=== PATIENT | male | born 1955 | race Caucasian/White ===

== ENCOUNTER 2017-11-20 13:22 | Inpatient (IN) | payer MEDICARE, MEDICAID ==
[~2017-11-20] VITALS: Ht 157.5 cm; Wt 78.3 kg
--- NOTE | 2017-11-20 07:45 | NUR ---
WARP DYEING TENDER NOTE: PATIENT IN BED, AWAKE AND VERBALLY RESPONSIVE. NOT ON ANY DISTRESS. DENIED PAIN. REPORT GIVEN TO PM SHIFT NURSE FOR CONTINUITY OF CARE. PM SHIFT NURSE WAS ALSO INFORMED THAT PATIENT RECEIVED VANCOMYCIN AT THE ER. Addendum: 11/20/17 at 2146 by GRIS OLIVARES RN ERROR IN TIME
--- NOTE | 2017-11-20 13:25 | NUR ---
PT ARI TO ER BED 09. WAS AT [facility]IALYSIS CENTER WHEN HE WAS NOTED TO BE TACHYCARDIC AND HYPOTENSIVE. PT DENIES ANY PAIN OR ANY DISCOMFORT. GOWNED AND PLACED ON MONITOR. AWAITLISBET SWANSON.
--- NOTE | 2017-11-20 13:36 | NUR ---
DR LEZAMA AT BEDSIDE FOR EVAL.
--- NOTE | 2017-11-20 13:43 | NUR ---
RADIOLOGY AT BEDSIDE FOR CHEST XRAY.
[2017-11-20] MEDS ORDERED: DILTIAZEM HCL 50 MG IV ONE (13:48)
[2017-11-20 13:55] LABS: BASOPHILS % (AUTO) 0.4 % (0.0-2.0); EOSINOPHILS # (AUTO) 0.2 /CMM (0.0-0.7); EOSINOPHILS % (AUTO) 3.2 % (0.0-6.0); HEMATOCRIT 26 % (39-51); HEMOGLOBIN 8.3 g/dL (13.5-17.5); LYMPHOCYTES # (AUTO) 1.3 /CMM (0.8-4.8); LYMPHOCYTES % (AUTO) 23.2 % (20.0-44.0); MEAN CORPUSCULAR HEMOGLOBIN 23 PG (26.0-33.0); MEAN CORPUSCULAR HGB CONC 32 g/dl (31.0-36.0); MEAN CORPUSCULAR VOLUME 72 fL (80-96); MONOCYTES # (AUTO) 0.5 /CMM (0.1-1.30); MONOCYTES % (AUTO) 9.6 % (2.0-12.0); NEUTROPHILS # (AUTO) 3.5 /CMM (1.8-8.9); NEUTROPHILS % (AUTO) 63.6 % (43.0-81.0); PLATELET COUNT (AUTO) 212 /CMM (150-450); RDW COEFFICIENT OF VARIATION 26.8 (11.5-15.0); RED BLOOD CELL COUNT(AUTO) 3.58 MIL/uL (4.5-6.0); WHITE BLOOD COUNT (AUTO) 5.5 K/uL (4.3-11.0)
[2017-11-20] MEDS ORDERED: IV NS 0.9% 500 ML BAG IV ONE (14:00)
[2017-11-20] MEDS ORDERED: DILTIAZEM HCL 50 MG IV IV ONE ×2 (14:00)
--- NOTE | 2017-11-20 14:12 | NUR ---
PT STILL TACHY AT 133. DR LEZAMA AT BEDSIDE. ORDER FOR DILTIAZEM 10MG IVP. ORDERED CARRIED OUT GIVEN SLOW IVP.
[2017-11-20 14:13] LABS: CALCIUM, SERUM 8.6 mg/dL (8.5-10.1); CARBON DIOXIDE 24 mmol/L (21-32); CHLORIDE 99 mmol/L (98-107); CREATININE 5.4 mg/dL (0.6-1.3); GLUCOSE 203 mg/dL (74-106); POTASSIUM 5.1 mmol/L (3.5-5.1); SODIUM SERUM 136 mmol/L (136-145); UREA NITROGEN, BLOOD 36 mg/dL (7-18)
[2017-11-20 14:19] LABS: TROPONIN I < 0.017 ng/mL (0.00-0.056)
[2017-11-20 14:26] LABS: ALANINE AMINOTRANSFERASE 11 U/L (12-78); ALBUMIN 3.1 g/dL (3.4-5.0); ALKALINE PHOSPHATASE 126 U/L (46-116); ASPARTATE AMINOTRANSFERASE 13 U/L (15-37); BILIRUBIN,DIRECT 0.1 mg/dL (0.0-0.2); BILIRUBIN,TOTAL 0.5 mg/dL (0.2-1.0); TOTAL PROTEIN, SERUM 7.6 g/dL (6.4-8.2)
--- NOTE | 2017-11-20 14:40 | NUR ---
DR LEZAMA ON THE PHONE WITH DR FINESSE FERREIRA
[2017-11-20] MEDS ORDERED: CROM10DR2 RIGHTEYE (15:00)
[2017-11-20] MEDS ORDERED: AMIO200T2 PO (15:00)
[2017-11-20] MEDS ORDERED: ATOR20TA PO (15:00)
[2017-11-20] MEDS ORDERED: GABA-534 PO (15:00)
[2017-11-20] MEDS ORDERED: RANI150C4 PO (15:00)
[2017-11-20] MEDS ORDERED: VANCOMYCIN 1 GM in IV D5W 250 ML IV ONE (15:00)
[2017-11-20] MEDS ORDERED: INSU100V7 SQ (15:00)
[2017-11-20] MEDS ORDERED: TERA10CA4 PO (15:00)
[2017-11-20] MEDS ORDERED: FERR325T23 PO (15:00)
[2017-11-20] MEDS ORDERED: INSU100I14 SQ (15:00)
[2017-11-20] MEDS ORDERED: SEVE800T8 PO (15:00)
[2017-11-20] MEDS ORDERED: ASPI-1169 PO (15:00)
[2017-11-20] MEDS ORDERED: CALC0.253 PO (15:00)
[2017-11-20] MEDS ORDERED: CARV12.5 PO (15:00)
[2017-11-20] MEDS ORDERED: TRAM50TA2 PO (15:00)
[2017-11-20] MEDS ORDERED: CINA30TA2 PO (15:00)
[2017-11-20] MEDS ORDERED: POLY17PO4 PO (15:00)
[2017-11-20] MEDS ORDERED: PANT40TA4 PO (15:00)
[2017-11-20] MEDS ORDERED: DOCU-141 PO (15:00)
[2017-11-20] MEDS ORDERED: AMLO10TA2 PO (15:00)
[2017-11-20 15:05] LABS: INR 4.35 (0.85-1.15)
--- NOTE | 2017-11-20 15:06 | NUR ---
PATIENT ASSIGNED TO TELE 118-1, ADMITTING DR PACHECO, MARCO Cardoza-BRITTANI
--- NOTE | 2017-11-20 15:26 | NUR ---
PT STILL UNABLE TO PROVIDE URINE SAMPLE.
--- NOTE | 2017-11-20 15:34 | NUR ---
REPORT GIVEN TO SHAYAN. PT AWAITING TRANSFER TO FLOOR.
[2017-11-20 16:00] VITALS: BP 131/71
--- NOTE | 2017-11-20 16:00 | NUR ---
SENIOR FIRE PROTECTION ENGINEER NOTE: RECEIVED PATIENT TO ROOM 118-1 AND REPORT WAS GIVEN BY DAREN ANDERSEN. PATIENT IS AWAKE, ALERT AND VERBALLY RESPONSIVE. NOT ON ANY FORM OF DISTRESS. DENIES PAIN. COMPLETE BODY ASSESSMENT DONE. SKIN INTACT NOTED W/ ABDOMINAL SCARS. HOB ELEVATED. (L) HAND 18G PATENT AND INTACT. (R) SUBCLAVIAN HD CATH NOTED. PER REPORT FROM ER NURSE, THE PATIENT MISSED TO HAVE HIS HD SCHEDULED TODAY DUE TO HIS ELEVATED HR AND LOW BP. DR. PACHECO WAS MADE AWARE OF THE PATIENT'S ADMISSION TO THE UNIT. AWAITING FOR MD ORDERS. PATIENT PLACED IN A COMFORTABLE POSITION IN THE BED. CALL LIGHT WITHIN REACH. BED ALARM AND LOCKED AT ALL TIMES.
--- NOTE | 2017-11-20 16:10 | NUR ---
FINGERPRINT EXPERT NOTE: PATIENT WAS NOTED W/ (L) CHEST ICD, (R) SUBCLAVIAN HD CATH AND OLD SCARS IN THE ABDOMEN. PATIENT VERBALIZED THAT HE DOES NOT REMEMBER IF HE RECEIVED INFLUENZA AND PNEUMONIA VACCINE.
[2017-11-20] MEDS ORDERED: TRAMADOL HCL 50 MG TABLET PO PRN (18:00)
[2017-11-20] MEDS ORDERED: ASPIRIN 81 MG TAB.CHEW PO SCH (18:00)
[2017-11-20] MEDS ORDERED: ONDANSETRON HCL/PF 4 MG/2 ML VIAL IVP PRN (18:00)
[2017-11-20] MEDS ORDERED: ACETAMINOPHEN 325 MG TABLET PO PRN (18:00)
[2017-11-20] MEDS ORDERED: MAGNESIUM HYDROXIDE 30 ML UDC PO PRN (18:00)
[2017-11-20] MEDS ORDERED: Z GUARD REMEDY 2 OZ OINT TP PRN (18:00)
[2017-11-20] MEDS ORDERED: ZOLPIDEM TARTRATE 5 MG TABLET PO PRN (18:00)
[2017-11-20] MEDS ORDERED: HYDROCODONE/APAP 5/325MG 1 EACH TABLET PO PRN (18:00)
[2017-11-20] MEDS ORDERED: MAG HYDROX/AL HYDROX/SIMETH 30 ML UDC PO PRN (18:00)
[2017-11-20] MEDS: ASPIRIN 81 MG TAB.CHEW PO SCH (18:09)
[2017-11-20] MEDS: AMLODIPINE BESYLATE 10 MG TABLET PO SCH (18:10)
[2017-11-20] MEDS: CALCITRIOL 0.25 MCG CAPSULE PO SCH (18:10)
[2017-11-20] MEDS: AMIODARONE HCL 200 MG TABLET PO SCH (18:10)
[2017-11-20] MEDS: PANTOPRAZOLE 40 MG TABLET.DR PO SCH (18:10)
[2017-11-20] MEDS: DOCUSATE SODIUM 100 MG CAPSULE PO SCH (18:11)
[2017-11-20] MEDS: CARVEDILOL 12.5 MG TABLET PO SCH (18:11)
[2017-11-20] MEDS: FERROUS SULFATE (325 MG) 325 MG/TAB TABLET PO SCH (18:11)
[2017-11-20] MEDS: GABAPENTIN 300 MG CAPSULE PO SCH (18:11)
[2017-11-20] MEDS: POLYETHYLENE GLYCOL 3350 17 GM POWD.PACK PO SCH (18:11)
[2017-11-20] MEDS: CINACALCET HCL 30 MG TABLET PO SCH (18:11)
--- NOTE | 2017-11-20 19:45 | NUR ---
CONTROL ROOM HELPER NOTE: PATIENT IN BED, AWAKE AND VERBALLY RESPONSIVE. NOT ON ANY DISTRESS. DENIED PAIN. REPORT GIVEN TO PM SHIFT NURSE FOR CONTINUITY OF CARE. PM SHIFT NURSE WAS ALSO INFORMED THAT PATIENT RECEIVED VANCOMYCIN AT THE ER.
[2017-11-20 20:00] VITALS: BP 84/49
--- NOTE | 2017-11-20 20:50 | NUR ---
ekg refused by hemodialysis nurse at thsi time gloria hernandez notified
[2017-11-20 21:37] VITALS: BP 86/49
[2017-11-20] MEDS: TERAZOSIN HCL 5 MG CAPSULE PO SCH (22:00)
[2017-11-20] MEDS: FAMOTIDINE (20 MG) 20 MG TABLET PO SCH (22:36)
--- NOTE | 2017-11-20 22:42 | NUR ---
PROPERTY CARETAKER NOTES SPOKE WITH PHARMACIST MORELIA. RELAYED PATIENT WITH LOW BP 88/49 AND JUST FINISHED DIALYSIS. MORELIA RECOMMENDED TO HOLD TERAZOSIN DOSE. DOSE WAS HELD BY RN
[2017-11-20] MEDS: INSULIN GLARGINE, 100 UNIT/ML CARTRIDGE SQ SCH (23:21)
[2017-11-21] VITALS: BP 116/65
[2017-11-21 04:00] VITALS: BP 114/71
[2017-11-21 08:00] VITALS: BP 120/63
[2017-11-21 08:04] LABS: BASOPHILS % (AUTO) 0.2 % (0.0-2.0); EOSINOPHILS # (AUTO) 0.2 /CMM (0.0-0.7); EOSINOPHILS % (AUTO) 2.5 % (0.0-6.0); HEMATOCRIT 22 % (39-51); HEMOGLOBIN 7.3 g/dL (13.5-17.5); LYMPHOCYTES # (AUTO) 0.9 /CMM (0.8-4.8); LYMPHOCYTES % (AUTO) 10.2 % (20.0-44.0); MEAN CORPUSCULAR HEMOGLOBIN 24 PG (26.0-33.0); MEAN CORPUSCULAR HGB CONC 33 g/dl (31.0-36.0); MEAN CORPUSCULAR VOLUME 72 fL (80-96); MONOCYTES # (AUTO) 0.6 /CMM (0.1-1.30); MONOCYTES % (AUTO) 7.2 % (2.0-12.0); NEUTROPHILS # (AUTO) 7.2 /CMM (1.8-8.9); NEUTROPHILS % (AUTO) 79.9 % (43.0-81.0); PLATELET COUNT (AUTO) 191 /CMM (150-450); RDW COEFFICIENT OF VARIATION 26.5 (11.5-15.0)
[2017-11-21 08:05] LABS: ALBUMIN 2.8 g/dL (3.4-5.0); BILIRUBIN,TOTAL 0.7 mg/dL (0.2-1.0); CALCIUM, SERUM 7.7 mg/dL (8.5-10.1); CREATININE 3.5 mg/dL (0.6-1.3); MAGNESIUM 1.5 mg/dL (1.8-2.4); PHOSPHORUS 2.7 mg/dL (2.5-4.9); POTASSIUM 4.7 mmol/L (3.5-5.1); TOTAL PROTEIN, SERUM 6.9 g/dL (6.4-8.2)
[2017-11-21] MEDS: FERROUS SULFATE (325 MG) 325 MG/TAB TABLET PO SCH (08:15)
[2017-11-21] MEDS: DOCUSATE SODIUM 100 MG CAPSULE PO SCH ×2 (08:16→17:00)
[2017-11-21] MEDS: GABAPENTIN 300 MG CAPSULE PO SCH (08:16)
[2017-11-21] MEDS: FAMOTIDINE (20 MG) 20 MG TABLET PO SCH ×2 (08:16→21:47)
[2017-11-21] MEDS: ASPIRIN 81 MG TAB.CHEW PO SCH (08:16)
[2017-11-21] MEDS: CALCITRIOL 0.25 MCG CAPSULE PO SCH (08:17)
[2017-11-21] MEDS: AMIODARONE HCL 200 MG TABLET PO SCH (08:17)
[2017-11-21] MEDS: CINACALCET HCL 30 MG TABLET PO SCH (08:17)
[2017-11-21] MEDS: PANTOPRAZOLE 40 MG TABLET.DR PO SCH (08:17)
[2017-11-21] MEDS: CARVEDILOL 12.5 MG TABLET PO SCH ×2 (08:18→21:00)
[2017-11-21] MEDS: POLYETHYLENE GLYCOL 3350 17 GM POWD.PACK PO SCH (08:21)
[2017-11-21] MEDS: AMLODIPINE BESYLATE 10 MG TABLET PO SCH (08:26)
[2017-11-21] MEDS ORDERED: CROMOLYN SODIUM RIGHTEYE SCH ×3 (09:00)
[2017-11-21 10:00] LABS: BAND % (MANUAL) 1 % (0.0-5.0); EOSINOPHILS % (MANUAL) 2 % (0-4); LYMPHOCYTES % (MANUAL) 15 % (16-48); MONOCYTES % (MANUAL) 5 % (0-11.0); NEUTROPHILS % (MANUAL) 77 (42-76)
[2017-11-21 10:02] LABS: ABG BASE EXCESS 0.1 mmol/L; ABG OXYGEN SATURATION 93.8 % (92.0-98.5); ABG PCO2 35.1 mmHg (35.0-45.0); ABG PH 7.452 (7.350-7.450); ABG PO2 73.4 mmHg (75.0-100.0); AaDO2 34.3 mmHg; COHb 1.1 % (0.5-1.5); MetHb 0.1 % (0.0-1.5); O2Hb 92.7 % (94.0-97.0); SITE, ABG Right Brachial; VENT MODE, BG ROOM AIR
[2017-11-21 12:00] VITALS: BP 124/59
[2017-11-21] MEDS ORDERED: EPOETIN ALFA (10,000 UNIT) 10,000 UNIT/ML VIAL IV SCH (13:00)
[2017-11-21 16:00] VITALS: BP 114/60
[2017-11-21 16:39] LABS: INR 2.61 (0.87-1.13)
[2017-11-21] MEDS: SEVELAMER CARBONATE 800 MG TABLET PO SCH (17:47)
[2017-11-21 20:00] VITALS: BP 106/56
--- NOTE | 2017-11-21 20:00 | NUR ---
SERVICE TECHNICIAN NOTE PT IN BED ASLEEP, AROUSABLE. A/O X 4 ROMANIAN SPEAKING. ON TELE SR WITH 1ST DEGREE AV BLOCK HR 80. NO DISTRESS OR DISCOMFORT NOTED. DENIES PAIN. LT HAND S/L #18G INTACT AND PATENT. RT CLAVIAN HD CATH INTACT. SIDE RAILS UP X 2 AND CALL LIGHT WITHIN REACH. VSS. CONTINUE TO MONITOR HIM.
[2017-11-21] MEDS: ATORVASTATIN 10 MG TABLET PO SCH (21:47)
[2017-11-21] MEDS: TERAZOSIN HCL 5 MG CAPSULE PO SCH (21:50)
[2017-11-21] MEDS: INSULIN GLARGINE, 100 UNIT/ML CARTRIDGE SQ SCH (22:06)
--- NOTE | 2017-11-21 22:55 | NUR ---
HEARING SCREENER NOTE PT ENDORSED TO NURSE GARSIA FOR CONTINUE TO CARE. PT IN NO DISTRESS OR DISCOMFORT.
--- NOTE | 2017-11-21 23:00 | NUR ---
ACCREDITED LEGAL SECRETARY NOTES RECEIVED PATIENT AND REPORT FROM BEVERLY MERCEDES, WILL CONTINUE PATIENT CARE.
[2017-11-22] VITALS (13 sets, daily range): BP systolic 60–141; BP diastolic 36–78
[2017-11-22 06:57] LABS: EOSINOPHILS # (AUTO) 0.1 /CMM (0.0-0.7); EOSINOPHILS % (AUTO) 1.9 % (0.0-6.0); HEMATOCRIT 24 % (39-51); HEMOGLOBIN 7.8 g/dL (13.5-17.5); LYMPHOCYTES # (AUTO) 1.6 /CMM (0.8-4.8); LYMPHOCYTES % (AUTO) 21.6 % (20.0-44.0); MEAN CORPUSCULAR HEMOGLOBIN 24 PG (26.0-33.0); MEAN CORPUSCULAR HGB CONC 33 g/dl (31.0-36.0); MEAN CORPUSCULAR VOLUME 72 fL (80-96); MONOCYTES # (AUTO) 1.1 /CMM (0.1-1.30); MONOCYTES % (AUTO) 14.4 % (2.0-12.0); NEUTROPHILS # (AUTO) 4.6 /CMM (1.8-8.9); NEUTROPHILS % (AUTO) 62.1 % (43.0-81.0); PLATELET COUNT (AUTO) 169 /CMM (150-450); RDW COEFFICIENT OF VARIATION 26.3 (11.5-15.0); RED BLOOD CELL COUNT(AUTO) 3.29 MIL/uL (4.5-6.0); WHITE BLOOD COUNT (AUTO) 7.4 K/uL (4.3-11.0)
--- NOTE | 2017-11-22 07:04 | NUR ---
corporate communications intern notes patient is tachy at 135-140 on tele monitor and automatic bp machine. Patient is also hypotensive at 87/52. temp 97.9, respirations at 18, patient is fully alert and oriented x [address] Notified Dr[address] Rodriguez by paging. spoke with Brandon from answering service and relayed information. awating for call back.
[2017-11-22 07:22] LABS: IRON, SERUM 13 ug/dl (50-175); TOTAL IRON BINDING CAPACITY 160 ug/dl (250-450)
[2017-11-22 07:56] LABS: FERRITIN 1999 ng/mL (8-388)
--- NOTE | 2017-11-22 08:00 | NUR ---
SUPERVISOR HAND WORKERS AM NOTES PT IN BED ALERT,AWAKE ATE 100%BREAKFAST.A/O X 4 KHMER SPEAKING. ON TELE SR WITH 1ST DEGREE AV BLOCK HR 80. NO DISTRESS OR DISCOMFORT NOTED. DENIES PAIN. LT HAND S/L #18G INTACT AND PATENT. RT SUBCLAVIAN HD CATH INTACT. SIDE RAILS UP X 2 AND CALL LIGHT WITHIN REACH. BP RANGING 60/36 TO 69/51 HR 141-148.BLOOD SUGAR 136.ASYMPTOMATIC.NOTIFIED DR PACHECO AND MADE AWARE.WILL CONTINUE TO MONITOR HIM.
[2017-11-22] MEDS ORDERED: IV NS 0.9% 500 ML IV STA (08:21)
[2017-11-22 08:24] LABS: BAND % (MANUAL) 1 % (0.0-5.0); EOSINOPHILS % (MANUAL) 3 % (0-4); LYMPHOCYTES % (MANUAL) 21 % (16-48); MONOCYTES % (MANUAL) 9 % (0-11.0); NEUTROPHILS % (MANUAL) 64 (42-76); REACTIVE LYMPHOCYTES 2 % (0-0)
[2017-11-22] MEDS ORDERED: DEXTROSE 50%-WATER 50 ML DISP.SYRIN IV PRN (08:30)
[2017-11-22] MEDS: CINACALCET HCL 30 MG TABLET PO SCH (08:40)
[2017-11-22] MEDS: SEVELAMER CARBONATE 800 MG TABLET PO SCH ×3 (08:40→18:15)
[2017-11-22] MEDS: GABAPENTIN 300 MG CAPSULE PO SCH (08:40)
[2017-11-22] MEDS: POLYETHYLENE GLYCOL 3350 17 GM POWD.PACK PO SCH (08:40)
[2017-11-22] MEDS: PANTOPRAZOLE 40 MG TABLET.DR PO SCH (08:41)
[2017-11-22] MEDS: FAMOTIDINE (20 MG) 20 MG TABLET PO SCH ×2 (08:41→21:28)
[2017-11-22] MEDS: ASPIRIN 81 MG TAB.CHEW PO SCH (08:41)
[2017-11-22] MEDS: CALCITRIOL 0.25 MCG CAPSULE PO SCH (08:41)
[2017-11-22] MEDS: DOCUSATE SODIUM 100 MG CAPSULE PO SCH ×2 (08:41→18:16)
[2017-11-22] MEDS: BLOOD SUGAR DIAGNOSTIC 1 EACH STRIP IN SCH ×4 (08:41→21:28)
[2017-11-22] MEDS: CARVEDILOL 12.5 MG TABLET PO SCH ×3 (08:44→21:00)
[2017-11-22] MEDS: AMLODIPINE BESYLATE 10 MG TABLET PO SCH (08:45)
[2017-11-22] MEDS: FERROUS SULFATE (325 MG) 325 MG/TAB TABLET PO SCH (08:48)
[2017-11-22] MEDS: AMIODARONE HCL 200 MG TABLET PO SCH ×2 (08:50→18:16)
--- NOTE | 2017-11-22 09:20 | NUR ---
SPOKE TO DR ANGELES AND MADE AWARE OF PT'S VITALS BP 78/48 HR 142 BOLUS OF NS 500 ML COMPLETED.
[2017-11-22] MEDS ORDERED: ADENOSINE 6 MG/2 ML VIAL IVP ONE (09:30)
--- NOTE | 2017-11-22 09:50 | NUR ---
STAT EKG DONE,CRASH CART,R.T.,CHARGE NURSE,[place] STAFF AND DR ANGELES AT BEDSIDE FOR CLOSE MONITORING.ADENOSING 6 MG IV GIVEN WITH STABLE V/S BP 116/HR 103 100%O2 SAT.PT REMAINS AWAKE AND VERBALLY RESPONSIVE WIT NO DISTRESS NOTED.
--- NOTE | 2017-11-22 09:55 | NUR ---
BP 129/73 HR 100.PT REMAINS ALERT.AWAKE AND VERBALLY RESPONSIVE.DENIES ANY DISTRESS.HELD THE REST OF THE ADENOSINE IV ORDERS AND RETURNED TO THE PHARMACY.
[2017-11-22] MEDS: ADENOSINE 6 MG/2 ML VIAL IVP ONE ×4 (09:56→10:09)
--- NOTE | 2017-11-22 10:15 | NUR ---
DR ANGELES ORDERED TO GIVE COREG 37.5 MG PO AND HOLD NORVASC.PT IS GOING TO HAVE HEMODIALYSIS TODAY.HELD COREG AT THIS TIME.
[2017-11-22] MEDS: DILTIAZEM HCL CD 240 MG PO SCH (10:30)
[2017-11-22 11:58] LABS: INR 1.85 (0.87-1.13)
--- NOTE | 2017-11-22 13:50 | NUR ---
HELD INSULIN PT REFUSED TO EAT LUNCH,PT HAVING HEMODIALYSIS PROCEDURE AT THIS TIME
[2017-11-22] MEDS ORDERED: ALBUMIN 25% 25 GM in PREMIX 1 EA IV PRN (14:30)
--- NOTE | 2017-11-22 15:00 | NUR ---
HELD CARDIZEM DUE TO LOW BP POST HD BP 106/46 HR 79.HEMODIALYSIS COMPLETED WITH NO OUTPUT.ALBUMIN GIVEN DURING HD PROCEDURE DUE TO LOW SBP.
[2017-11-22] MEDS ORDERED: WARFARIN SODIUM 2 MG TABLET PO SCH (17:00)
--- NOTE | 2017-11-22 18:00 | NUR ---
RECHECKED PT'S BP PRIOR TO GIVING HIS BP MEDS BP138/73 HR 79
[2017-11-22] MEDS: SOD FERRIC GLUC 125 MG in IV NS 0.9% 100 ML IV SCH (18:15)
--- NOTE | 2017-11-22 20:00 | NUR ---
RN INITIAL NOTES PT IN BED ALERT,AWAKE KITTITIAN SPEAKING. ON TELE. NO DISTRESS OR DISCOMFORT NOTED. DENIES PAIN. LT HAND S/L #18G INTACT AND PATENT. RT SUBCLAVIAN HD CATH INTACT. SIDE RAILS UP X 2 AND CALL LIGHT WITHIN REACH.WILL CONTINUE TO MONITOR.
[2017-11-22] MEDS: TERAZOSIN HCL 5 MG CAPSULE PO SCH (21:27)
[2017-11-22] MEDS: ATORVASTATIN 10 MG TABLET PO SCH (21:28)
[2017-11-22] MEDS: INSULIN GLARGINE, 100 UNIT/ML CARTRIDGE SQ SCH (21:31)
[2017-11-22] MEDS: INSULIN REGULAR, HUMAN 100 UNIT/ML 3 ML VIAL SQ PRN (23:21)
[2017-11-23] VITALS: BP_SYST 104; BP_DIAS 53; BP_DIAS 59
[2017-11-23 04:00] VITALS: BP_SYST 101; BP_DIAS 39; BP_DIAS 59
--- NOTE | 2017-11-23 06:13 | NUR ---
RN CLOSING NOTES PT ASLEEP IN BED. PT IN BED ALERT,AWAKE [place] SPEAKING. ON TELE. NO DISTRESS OR DISCOMFORT NOTED. DENIES PAIN. LT HAND S/L #18G INTACT AND PATENT. RT SUBCLAVIAN HD CATH INTACT. SIDE RAILS UP X 2 AND CALL LIGHT WITHIN REACH.WILL ENDORSE TO AM RN.
[2017-11-23] MEDS: PANTOPRAZOLE 40 MG TABLET.DR PO SCH (07:30)
[2017-11-23 08:00] VITALS: BP 124/62
--- NOTE | 2017-11-23 08:08 | NUR ---
TELE/RN OPENING NOTE PATIENT IN BED IN STABLE CONDITION. A/O X 4, ECUADOREAN SPEAKING. NO SIGNS OF ACUTE DISTRESS. NO COMPLAIN OF PAIN OR DISCOMFORT. ON TELE MONITOR WITH SINUS RHYTHM IN 60'S WITH FIRST DEGREE BLOCK. ALL NEEDS ATTENDED TO. CALL LIGHT WITHIN REACH. WILL CONTINUE TO MONITOR TO ENSURE SAFETY.
[2017-11-23] MEDS: POLYETHYLENE GLYCOL 3350 17 GM POWD.PACK PO SCH (08:48)
[2017-11-23] MEDS: BLOOD SUGAR DIAGNOSTIC 1 EACH STRIP IN SCH ×2 (08:48→12:01)
[2017-11-23] MEDS: CINACALCET HCL 30 MG TABLET PO SCH (08:48)
[2017-11-23] MEDS: GABAPENTIN 300 MG CAPSULE PO SCH (08:49)
[2017-11-23] MEDS: AMIODARONE HCL 200 MG TABLET PO SCH (08:49)
[2017-11-23] MEDS: DILTIAZEM HCL CD 240 MG PO SCH (08:49)
[2017-11-23] MEDS: SEVELAMER CARBONATE 800 MG TABLET PO SCH ×2 (08:49→12:06)
[2017-11-23] MEDS: ASPIRIN 81 MG TAB.CHEW PO SCH (08:50)
[2017-11-23] MEDS: FAMOTIDINE (20 MG) 20 MG TABLET PO SCH (08:50)
[2017-11-23] MEDS: CALCITRIOL 0.25 MCG CAPSULE PO SCH (08:50)
[2017-11-23] MEDS: DOCUSATE SODIUM 100 MG CAPSULE PO SCH (08:50)
[2017-11-23] MEDS: CARVEDILOL 12.5 MG TABLET PO SCH (08:50)
[2017-11-23] MEDS: INSULIN REGULAR, HUMAN 100 UNIT/ML 3 ML VIAL SQ PRN ×2 (08:52→12:04)
[2017-11-23 09:47] VITALS: BP 124/62
[2017-11-23 12:00] VITALS: BP 105/61
[2017-11-23 12:09] VITALS: BP 105/61
[2017-11-23] MEDS: SOD FERRIC GLUC 125 MG in IV NS 0.9% 100 ML IV SCH (13:54)
--- NOTE | 2017-11-23 15:47 | NUR ---
TELE/DATA TRANSCRIBER PATIENT DISCHARGE TO SNF IN STABLE CONDITION. A/O X 4. ROMANSH SPEAKING. NO SIGNS OF ACUTE DISTRESS. NO COMPLAIN OF PAIN OR DISCOMFORT. DISCHARGE INSTRUCTIONS AND TEACHINGS PROVIDED, VERBALIZED UNDERSTANDING. REPORT GIVEN TO EKATERINA MERCEDES FROM [facility]. ALL NEEDS ATTENDED TO. NAME BAND AND IV LINE REMOVED. TOLERATED WELL. LEFT VIA GURNEY IN STABLE CONDITION ACCOMPANIED BY 2 PARAMEDICS.
== END 2017-11-23 15:56 | DRG 308 ==
LOC: ER 13:27 → TELE1 17:13
PROVIDERS: ADMIT Internal Medicine; ATTEND Internal Medicine
PROC: 5A1D70Z Performance of Urinary Filtration, Intermittent, Less than 6 Hours Per Day (ICD-10-PCS; principal; 2017-11-20)
PROC: 5A1D70Z Performance of Urinary Filtration, Intermittent, Less than 6 Hours Per Day (ICD-10-PCS; 2017-11-22)
DX: I47.1 Supraventricular tachycardia (principal); N18.6 End stage renal disease; D68.59 Other primary thrombophilia; I12.0 Hypertensive chronic kidney disease with stage 5 chronic kidney disease or end stage renal disease; E11.22 Type 2 diabetes mellitus with diabetic chronic kidney disease; I48.92 Unspecified atrial flutter; I48.0 Paroxysmal atrial fibrillation; Z99.2 Dependence on renal dialysis; E78.5 Hyperlipidemia, unspecified; D63.8 Anemia in other chronic diseases classified elsewhere; Z79.01 Long term (current) use of anticoagulants
CPT/HCPCS: 36415; 36600; 71045-TC; 80048-TC; 80053-TC; 80061-TC; 80076-TC; 82728-TC; 82803-TC; 82962-TC; 83540-TC; 83605-TC; 83735-TC; 84100-TC; 84484-TC; 85025-TC; 85610-TC; 85730-TC; 86850-TC; 87040-TC; 87081-TC; 90935-TC; A4216; A4606; J0153; J0885; J1815; J2916; J3370; J3490; J7030; J7040; J7060; P9047; Z7610